=== PATIENT | female | born 1950 | race Caucasian/White ===

== ENCOUNTER → 2016-11-13 | Outpatient (CLI) | payer MEDICARE | END | disposition disaster alternative care site (69) | LOC: LKCL 17:35 | DX: Z12.4 Encounter for screening for malignant neoplasm of cervix (principal); Z13.89 Encounter for screening for other disorder; N90.89 Other specified noninflammatory disorders of vulva and perineum | CPT/HCPCS: G0145 ==

== ENCOUNTER → 2017-01-09 | Outpatient (CLI) | payer MEDICARE, OTHER | END | disposition disaster alternative care site (69) | LOC: GBCOE 12:49 | DX: Z12.31 Encounter for screening mammogram for malignant neoplasm of breast (principal) | CPT/HCPCS: G0202 ==